=== PATIENT | female | born 1960 | race Caucasian/White ===

== ENCOUNTER → 2019-05-26 | Outpatient (CLI) | payer OTHER ==
[2019-05-26 09:57] LABS: ABSOLUTE EOSINOPHILS # (AUTO) 0.1 10^3/uL (0.0-0.6); ABSOLUTE LYMPHOCYTES (AUTO) 1.7 10^3/uL (0.5-4.7); ABSOLUTE MONOCYTES (AUTO) 0.5 10^3/uL (0.1-1.4); ABSOLUTE NEUT (AUTO) 3.5 10^3/uL (1.7-8.2); BASOPHILS % (AUTO) 0.3 % (0-2); EOSINOPHILS % (AUTO) 1.8 % (0-6); HEMATOCRIT 41.1 % (36.0-47.0); HEMOGLOBIN 13.7 g/dL (12.0-15.5); LYMPHOCYTES % (AUTO) 29.4 % (13-45); MEAN CORPUSCULAR HEMOGLOBIN 28.9 pg (27.0-33.4); MEAN CORPUSCULAR HGB CONC 33.2 g/dL (32.0-36.0); MEAN CORPUSCULAR VOLUME 87 fl (80-97); MONOCYTES % (AUTO) 8.2 % (3-13); PLATELET COUNT 203 10^3/uL (150-450); RED BLOOD COUNT 4.72 10^6/uL (3.72-5.28); RED CELL DISTRIBUTION WIDTH 13.8 % (11.5-14.0); SEGMENTED NEUTROPHILS % (AUTO) 60.3 % (42-78); TOTAL CELLS COUNTED % (AUTO) 100 %; WHITE BLOOD COUNT 5.8 10^3/uL (4.0-10.5)
[2019-05-26 10:25] LABS: ALANINE AMINOTRANSFERASE 26 U/L (9-52); ALBUMIN 4.3 g/dL (3.5-5.0); ALKALINE PHOSPHATASE 99 U/L (38-126); AMYLASE 60 U/L (30-110); ANION GAP 6 (5-19); ASPARTATE AMINO TRANSFERASE 13 U/L (14-36); BILIRUBIN,DIRECT 0.2 mg/dL (0.0-0.4); BILIRUBIN,TOTAL 0.6 mg/dL (0.2-1.3); BLOOD UREA NITROGEN 14 mg/dL (7-20); CALCIUM 9.6 mg/dL (8.4-10.2); CARBON DIOXIDE 30 mmol/L (22-30); CHLORIDE 105 mmol/L (98-107); GLUCOSE 97 mg/dL (75-110); LIPASE 61.2 U/L (23-300); POTASSIUM 4.9 mmol/L (3.6-5.0); SODIUM 141.3 mmol/L (137-145); TOTAL PROTEIN 7.1 g/dL (6.3-8.2); TRIGLYCERIDES 153 mg/dL (<150)
[2019-05-26 10:35] LABS: DIRECT LDL 123 mg/dL (<100)
[2019-05-26 10:37] LABS: VLDL CHOLESTEROL 30.6 mg/dL (10-31)
== END ==
LOC: OD 09:15
PROVIDERS: ATTEND Family Medicine Geriatric Medicine
DX: I10 Essential (primary) hypertension (principal); E66.9 Obesity, unspecified; J30.9 Allergic rhinitis, unspecified; K86.1 Other chronic pancreatitis; Z79.899 Other long term (current) drug therapy
CPT/HCPCS: 36415; 80053; 80061; 82150; 83690; 84443; 85025

== ENCOUNTER → 2019-06-07 | Outpatient (CLI) | payer OTHER | LOC: WI 09:28 | PROVIDERS: ATTEND Family Medicine Geriatric Medicine | DX: Z12.31 Encounter for screening mammogram for malignant neoplasm of breast (principal) | CPT/HCPCS: 77067 ==

== ENCOUNTER → 2019-10-06 | Outpatient (CLI) | payer OTHER ==
--- NOTE | 2019-10-06 12:53 | RADIOLOGY REPORT (SQ) ---
EXAM DESCRIPTION: CHEST PA/LATERAL COMPLETED DATE/TIME: 10/06/2019 12:45 pm REASON FOR STUDY: ACUTE BRONCHITIS COMPARISON: None. EXAM PARAMETERS: NUMBER OF VIEWS: two views TECHNIQUE: Digital Frontal and Lateral radiographic views of the chest acquired. RADIATION DOSE: NA LIMITATIONS: none FINDINGS: LUNGS AND PLEURA: No opacities, masses or pneumothorax. No pleural effusion. MEDIASTINUM AND HILAR STRUCTURES: No masses or contour abnormalities. HEART AND VASCULAR STRUCTURES: Heart normal size. No evidence for failure. BONES: No acute findings. HARDWARE: None in the chest. OTHER: No other significant finding. IMPRESSION: NO SIGNIFICANT RADIOGRAPHIC FINDING IN THE CHEST. TECHNICAL DOCUMENTATION: JOB ID: [id number] [employer]- All Rights Reserved Reading location - IP/workstation name: [email or web address]
[2019-10-06 13:11] LABS: A TYPE INFLUENZA AG NEGATIVE (NEGATIVE); B INFLUENZA AG NEGATIVE (NEGATIVE)
== END ==
LOC: OD 12:25
PROVIDERS: ATTEND Family Medicine Geriatric Medicine
DX: J20.9 Acute bronchitis, unspecified (principal); R05 Cough
CPT/HCPCS: 71046; 87804

== ENCOUNTER → 2020-02-12 | Outpatient (CLI) | payer OTHER | LOC: OD 15:08 | PROVIDERS: ATTEND Family Medicine Geriatric Medicine | DX: Z02.89 Encounter for other administrative examinations (principal) | CPT/HCPCS: 36415; 86317; 86480; 86735; 86762; 86765 ==